=== PATIENT | male | born 1935 | race Caucasian/White ===

== ENCOUNTER 2016-05-28 13:06 | Outpatient (CLI) | payer MEDICARE, OTHER ==
[2016-05-28 13:25] LABS: Hemoglobin 12.2 g/dL (14.0-18.0); Mean Corpuscular Hemoglobin 32.5 pg (27.0-31.0); Mean Corpuscular Volume 92.8 fl (80.0-94.0); Mean Platelet Volume 7.9 fL (7.4-10.4); Platelet Count 157 thou/uL (130-400); RBC Distribution Width 12.3 % (11.5-14.5); Red Blood Cell (RBC) Count 3.75 mill/uL (4.70-6.10); White Blood Cell (WBC) Count 5.4 thou/uL (4.8-10.8)
[2016-05-28 13:57] LABS: Anion Gap 19 mmol/L (10-20); BUN (Urea Nitrogen) 58 mg/dL (8.4-25.7); Calc. Creatinine Clearance 0 mL/min (70-130); Calcium 10.9 mg/dL (7.8-10.44); Carbon Dioxide 22 mmol/L (23-31); Chloride 103 mmol/L (98-107); Estimated GFR-MDRD 28; Glucose 156 mg/dL (83-110); Potassium 5.2 mmol/L (3.5-5.1); Sodium 139 mmol/L (136-145)
== END 2016-05-28 13:07 | disposition home or self-care (01) ==
LOC: MADLAB 13:06
PROVIDERS: ATTEND Family Medicine
DX: E11.22 Type 2 diabetes mellitus with diabetic chronic kidney disease (principal); I12.9 Hypertensive chronic kidney disease with stage 1 through stage 4 chronic kidney disease, or unspecified chronic kidney disease
CPT/HCPCS: 36415; 80048; 85027

== ENCOUNTER 2016-06-25 10:31 | Outpatient (CLI) | payer MEDICARE ==
[2016-06-25 11:19] LABS: Hemoglobin A1c 6.2 % (4.0-6.0)
[2016-06-25 11:29] LABS: Anion Gap 12 mmol/L (10-20); BUN (Urea Nitrogen) 41 mg/dL (8.4-25.7); Calc. Creatinine Clearance 0 mL/min (70-130); Carbon Dioxide 25 mmol/L (23-31); Chloride 104 mmol/L (98-107); Estimated GFR-MDRD 32; Potassium 4.4 mmol/L (3.5-5.1); Sodium 137 mmol/L (136-145)
[2016-06-25 11:30] LABS: ALT (SGPT) 68 U/L (0-55); AST (SGOT) 42 U/L (5-34); Albumin 3.7 g/dL (3.4-4.8); Alkaline Phosphatase 119 U/L (40-150); Bilirubin, Direct 0.4 mg/dL (0.1-0.3); Bilirubin, Total 0.9 mg/dL (0.2-1.2); Calcium 11.9 mg/dL (7.8-10.44); Cardiac Risk 2.5 (Less than 4.5); Cholesterol 129 mg/dL (< 200 Desired); Glucose 167 mg/dL (83-110); HDL Cholesterol 51 mg/dL (>60 Neg Risk); LDL Cholesterol, Calculated 61 mg/dL; Protein, Total 6.1 g/dL (5.8-8.1); Triglycerides 87 mg/dL (Less than 150)
[2016-06-25 11:57] LABS: #Basophils 0.1 thou/uL (0.0-0.2); #Eosinphils 0.1 thou/uL (0.0-0.7); #Lymphocytes 1.2 thou/uL (1.20-3.40); #Monocytes 0.5 thou/uL (0.11-0.59); %Basophils 1.2 % (0.0-1.0); %Eosinophils 1.7 % (0.0-10.0); %Lymphocytes 25.5 % (21.0-51.0); %Monocytes 9.5 % (0.0-10.0); Anisocytosis SLIGHT = 6-15 cells (100X) (0-5/hpf); Hemoglobin 12.7 g/dL (14.0-18.0); MDiff Complete? YES; Mean Corpuscular Hemoglobin 34.1 pg (27.0-31.0); Mean Corpuscular Volume 92.2 fl (80.0-94.0); Mean Platelet Volume 8.4 fL (7.4-10.4); PLT Morphology Comment Appears Decreased; Platelet Count 121 thou/uL (130-400); RBC Distribution Width 12.4 % (11.5-14.5); Red Blood Cell (RBC) Count 3.71 mill/uL (4.70-6.10); White Blood Cell (WBC) Count 4.8 thou/uL (4.8-10.8)
[2016-06-25 13:53] LABS: Bilirubin Negative (Negative); Blood, Urine Negative (Negative); Clarity Clear (Clear); Glucose, Urine (Dipstick) Negative (Negative); Leukocyte Negative (Negative); Nitrite Negative (Negative); Protein, Urine (Dipstick) Negative (Neg-Trace); Specific Gravity, Urine 1.015 (1.005-1.030); Urobilinogen 0.2 mg/dL (0.2-1.0)
[2016-06-25 14:41] LABS: Bacteria/HPF Rare-Few HPF (None Seen); RBC/HPF 0-3 HPF (0-3); Squamous Epithelial None Seen HPF (0-3); WBC/HPF None Seen HPF (0-3)
[2016-06-25 17:10] LABS: Creatinine, Urine 103.11 mg/dL (63-166); Microalbumin Urine Less than 1.0 mg/dL (0.5-50.0); Microalbumin/Creat Ratio 9.7 mg/g (Less than 30)
== END 2016-06-25 10:32 ==
LOC: MADLABBHPM 10:31
PROVIDERS: ATTEND Family Medicine
DX: E11.9 Type 2 diabetes mellitus without complications (principal); I48.91 Unspecified atrial fibrillation; E03.9 Hypothyroidism, unspecified
CPT/HCPCS: 36415; 80048; 80061; 80076; 81001; 82043; 83036; 84443; 85025

== ENCOUNTER 2016-07-26 10:32 | Outpatient (CLI) | payer MEDICARE ==
[2016-07-26 11:02] LABS: Anion Gap 15 mmol/L (10-20); BUN (Urea Nitrogen) 48 mg/dL (8.4-25.7); Calc. Creatinine Clearance 0 mL/min (70-130); Calcium 10.5 mg/dL (7.8-10.44); Carbon Dioxide 22 mmol/L (23-31); Chloride 104 mmol/L (98-107); Estimated GFR-MDRD 31; Glucose 120 mg/dL (83-110); Potassium 4.7 mmol/L (3.5-5.1); Sodium 136 mmol/L (136-145)
== END 2016-07-26 10:33 | disposition home or self-care (01) ==
LOC: MADLAB 10:32
PROVIDERS: ATTEND Internal Medicine Nephrology
DX: N18.3 Chronic kidney disease, stage 3 (moderate) (principal)
CPT/HCPCS: 36415; 80048

== ENCOUNTER 2016-11-27 11:25 | Outpatient (CLI) | payer MEDICARE ==
[2016-11-27 12:07] LABS: Anion Gap 12 mmol/L (10-20); BUN (Urea Nitrogen) 49 mg/dL (8.4-25.7); Calc. Creatinine Clearance 0 mL/min (70-130); Calcium 10.5 mg/dL (7.8-10.44); Carbon Dioxide 24 mmol/L (23-31); Chloride 107 mmol/L (98-107); Estimated GFR-MDRD 28; Glucose 123 mg/dL (83-110); Phosphorus 2.6 mg/dL (2.3-4.7); Potassium 4.9 mmol/L (3.5-5.1); Sodium 138 mmol/L (136-145)
[2016-11-27 12:45] LABS: #Basophils 0.1 thou/uL (0.0-0.2); #Eosinphils 0.1 thou/uL (0.0-0.7); #Lymphocytes 1.2 thou/uL (1.20-3.40); #Monocytes 0.6 thou/uL (0.11-0.59); #Neutrophils 2.6 thou/uL (1.40-6.50); %Basophils 1.5 % (0.0-1.0); %Lymphocytes 26.7 % (21.0-51.0); %Monocytes 12.3 % (0.0-10.0); %Neutrophils 57.6 % (42.0-75.0); Hemoglobin 11.9 g/dL (14.0-18.0); Mean Corpuscular Hemoglobin 32.4 pg (27.0-31.0); Mean Corpuscular Volume 95.3 fl (80.0-94.0); Mean Platelet Volume 8.1 fL (7.4-10.4); PLT Morphology Comment Appears Adequate; Platelet Count 113 thou/uL (130-400); RBC Distribution Width 12.5 % (11.5-14.5); Red Blood Cell (RBC) Count 3.66 mill/uL (4.70-6.10); White Blood Cell (WBC) Count 4.6 thou/uL (4.8-10.8)
== END 2016-11-27 11:26 | disposition home or self-care (01) ==
LOC: MADLAB 11:25
PROVIDERS: ATTEND Internal Medicine Nephrology
DX: N18.3 Chronic kidney disease, stage 3 (moderate) (principal)
CPT/HCPCS: 36415; 80048; 83970; 84100; 85025

== ENCOUNTER 2017-05-11 15:08 | Emergency (ER) | payer MEDICARE ==
[~2017-05-11 15:08] MED LIST: Sodium Chloride 0.9% 100 ML BAG ONE
--- NOTE | 2017-05-11 16:03 | RAD ---
CHEST ONE VIEW 05/11/17 HISTORY: Fever. COMPARISON: Chest radiograph 01/01/07. FINDINGS: Heart size is enlarged. No pneumothorax. Mild pulmonary venous congestion. Cardiac device appears similar. IMPRESSION: Cardiomegaly and mild pulmonary venous congestion. POS: [facility]
[2017-05-11 16:29] LABS: Hemoglobin 10.7 g/dL (14.0-18.0); Lymphocytes 3 % (21-51); MDiff Complete? YES; Mean Corpuscular HGB CONC 35.9 g/dL (32.0-36.0); Mean Corpuscular Hemoglobin 33.8 pg (27.0-31.0); Mean Platelet Volume 7.6 fL (7.4-10.4); Monocytes 9 % (0-10); Neutrophil 87 % (42-75); PLT Morphology Comment Appears Adequate; Platelet Count 134 thou/uL (130-400); Polychromasia SLIGHT = 2-3 cells (100X) (0-2/hpf); RBC Distribution Width 12.4 % (11.5-14.5); Reactive Lymphocytes 1 % (0-10); Red Blood Cell (RBC) Count 3.16 mill/uL (4.70-6.10); White Blood Cell (WBC) Count 13.4 thou/uL (4.8-10.8)
[2017-05-11 16:32] LABS: ALT (SGPT) 82 U/L (8-55); AST (SGOT) 51 U/L (5-34); Albumin 3.2 g/dL (3.4-4.8); Alkaline Phosphatase 166 U/L (40-150); Anion Gap 14 mmol/L (10-20); BUN (Urea Nitrogen) 60 mg/dL (8.4-25.7); Bilirubin, Total 1.7 mg/dL (0.2-1.2); Calc. Creatinine Clearance 0 mL/min (70-130); Calcium 10.1 mg/dL (7.8-10.44); Carbon Dioxide 23 mmol/L (23-31); Chloride 102 mmol/L (98-107); Estimated GFR-MDRD 22; Globulin 2.6 g/dL (2.4-3.5); Glucose 181 mg/dL (83-110); Potassium 4.7 mmol/L (3.5-5.1); Protein, Total 5.8 g/dL (5.8-8.1); Sodium 134 mmol/L (136-145)
[2017-05-11 17:20] LABS: CKMB 0.5 ng/mL (0-6.6); Troponin I 0.043 ng/mL (< 0.028)
[2017-05-11 17:31] LABS: Bilirubin Negative (Negative); Blood, Urine Large (Negative); Clarity Cloudy (Clear); Glucose, Urine (Dipstick) Negative (Negative); Leukocyte Large (Negative); Nitrite Negative (Negative); Protein, Urine (Dipstick) 100 mg/dL (Neg-Trace); pH, Urine 5.5 (5.0-9.0)
[2017-05-11 17:38] LABS: Bacteria/HPF 1+ HPF (None Seen); Squamous Epithelial 0-3 HPF (0-3)
[2017-05-11] MEDS ORDERED: cefTRIAXone\\ROCEPHIN 2 GM VIAL ONE (18:41)
[2017-05-11] MEDS ORDERED: Sodium Chloride 0.9% 1,000 ML ONE (18:44)
[2017-05-12] MEDS ORDERED: Acetaminophen 500 MG TAB ONE (00:36)
[2017-05-12] MEDS ORDERED: Amiodarone 200 MG TAB ONE (10:21)
[2017-05-12 10:53] LABS: ALT (SGPT) 102 U/L (8-55); AST (SGOT) 65 U/L (5-34); Alkaline Phosphatase 146 U/L (40-150); Anion Gap 16 mmol/L (10-20); BUN (Urea Nitrogen) 65 mg/dL (8.4-25.7); Bilirubin, Total 0.9 mg/dL (0.2-1.2); Calc. Creatinine Clearance 0 mL/min (70-130); Calcium 10.2 mg/dL (7.8-10.44); Carbon Dioxide 21 mmol/L (23-31); Chloride 104 mmol/L (98-107); Estimated GFR-MDRD 22; Globulin 2.6 g/dL (2.4-3.5); Glucose 192 mg/dL (83-110); Hemoglobin 10.1 g/dL (14.0-18.0); Lymphocytes 10 % (21-51); MDiff Complete? YES; Magnesium 1.9 mg/dL (1.6-2.6); Mean Corpuscular HGB CONC 34.1 g/dL (32.0-36.0); Mean Corpuscular Hemoglobin 32.5 pg (27.0-31.0); Mean Corpuscular Volume 95.3 fl (80.0-94.0); Mean Platelet Volume 7.5 fL (7.4-10.4); Monocytes 10 % (0-10); Neutrophil 80 % (42-75); PLT Morphology Comment Appears Decreased; Platelet Count 105 thou/uL (130-400); Polychromasia SLIGHT = 2-3 cells (100X) (0-2/hpf); Potassium 4.4 mmol/L (3.5-5.1); Protein, Total 5.6 g/dL (5.8-8.1); RBC Distribution Width 12.6 % (11.5-14.5); Red Blood Cell (RBC) Count 3.12 mill/uL (4.70-6.10); Sodium 137 mmol/L (136-145); White Blood Cell (WBC) Count 10.7 thou/uL (4.8-10.8)
== END 2017-05-12 11:15 | disposition short-term general hospital (02) ==
LOC: MADERS 15:08
DX: N39.0 Urinary tract infection, site not specified (principal); E11.9 Type 2 diabetes mellitus without complications; I50.9 Heart failure, unspecified; Z79.899 Other long term (current) drug therapy; Z79.01 Long term (current) use of anticoagulants
CPT/HCPCS: 36416; 71045; 80053; 81003; 81015; 82553; 83605; 83735; 83880; 84484; 85025; 87077; 87086; 87186; 93005; 96365; J0696; J7050; J7620

== ENCOUNTER 2017-09-23 13:53 | Outpatient (CLI) | payer MEDICARE ==
[2017-09-23 14:56] LABS: Bilirubin Negative (Negative); Blood, Urine Negative (Negative); Clarity Clear (Clear); Glucose, Urine (Dipstick) Negative (Negative); Leukocyte Negative (Negative); Nitrite Negative (Negative); Protein, Urine (Dipstick) Negative (Neg-Trace); pH, Urine 6.5 (5.0-9.0)
[2017-09-23 15:23] LABS: Anion Gap 15 mmol/L (10-20); BUN (Urea Nitrogen) 52 mg/dL (8.4-25.7); Calc. Creatinine Clearance 0 mL/min (70-130); Calcium 10.4 mg/dL (7.8-10.44); Carbon Dioxide 23 mmol/L (23-31); Chloride 106 mmol/L (98-107); Estimated GFR-MDRD 27; Glucose 121 mg/dL (83-110); Potassium 4.9 mmol/L (3.5-5.1); Sodium 139 mmol/L (136-145)
[2017-09-23 15:32] LABS: Bacteria/HPF Rare-Few HPF (None Seen); RBC/HPF 0-3 HPF (0-3); Squamous Epithelial 0-3 HPF (0-3); WBC/HPF None Seen HPF (0-3)
== END 2017-09-23 13:54 | disposition home or self-care (01) ==
LOC: MADLABBHPM 13:53
PROVIDERS: ATTEND Urology
DX: N18.9 Chronic kidney disease, unspecified (principal); N40.1 Benign prostatic hyperplasia with lower urinary tract symptoms; R35.0 Frequency of micturition
CPT/HCPCS: 36415; 80048; 81001; 87086